=== PATIENT | male | born 1980 | race Caucasian/White ===

== ENCOUNTER 2021-06-14 15:24 | Emergency (ER) | payer MEDICAID, SELFPAY ==
[~2021-06-14] VITALS: Ht 165.1 cm; Wt 81.2 kg
[2021-06-14 15:50] VITALS: BP_SYST 122
--- NOTE | 2021-06-14 15:50 | NUR ---
Pt to remain in ER tent until ER bed becomes available.
--- NOTE | 2021-06-14 16:00 | NUR ---
Pt AAO and ambulatory reporting cough x 1 week with history of pneumonia.
--- NOTE | 2021-06-14 16:10 | NUR ---
DR. NOVAK TO TRIAGE TO ASSESS.
--- NOTE | 2021-06-14 16:23 | NUR ---
PORTABLE CXR DONE PER RADIOLOGY.
--- NOTE | 2021-06-14 16:48 | NUR ---
Swabbed for YI & PCR. Sent to lab.
[2021-06-14] MEDS ORDERED: AZIT-93 PO (18:43)
[2021-06-14] MEDS ORDERED: ALBMDI INH (18:43)
[2021-06-14] MEDS ORDERED: PROM5SYR PO (18:46)
[2021-06-14 18:55] VITALS: BP_SYST 122
--- NOTE | 2021-06-14 18:55 | NUR ---
Patient given written and verbal discharge instructions and verbalizes understanding. DR. KISHORE AVILA MD discussed with patient the results and treatment provided. Patient in stable condition. ID arm band removed. Patient educated on pain management and to follow up with PMD. Pain Scale 0/10. Opportunity for questions provided and answered. Medication side effect fact sheet provided.
== END 2021-06-14 18:55 | disposition home or self-care (01) ==
LOC: SED 15:24
DX: U07.1 COVID-19 (principal); J12.82 Pneumonia due to coronavirus disease 2019; Z79.899 Other long term (current) drug therapy
CPT/HCPCS: 71045; 87426; 99284; U0003; 36415